=== PATIENT | female | born 1955 | race Caucasian/White ===

== ENCOUNTER 2018-03-07 18:37 | Emergency (ER) | payer OTHER ==
[~2018-03-07] VITALS: Ht 154.9 cm; Wt 74.9 kg
[2018-03-07 19:43] LABS: BASOPHILS % (AUTO) 0 % (0-1); EOSINOPHILS # (AUTO) 0.07 x10^3/uL (0-0.4); EOSINOPHILS % (AUTO) 1 % (1-7); LYMPHOCYTES # (AUTO) 1.35 x10^3/uL (1-3.4); LYMPHOCYTES % (AUTO) 28 % (22-44); MD NO; MEAN CORPUSCULAR HEMOGLOBIN 29.9 pg (27.0-34.8); MEAN CORPUSCULAR VOLUME 87.9 fL (80-100); MEAN PLATELET VOLUME 9.5 fL (7.4-10.4); MONOCYTES # (AUTO) 0.33 x10^3/uL (0.2-0.8); MONOCYTES % (AUTO) 7 % (2-9); NEUTROPHILS # (AUTO) 3.16 x10^3/uL (1.8-6.8); NEUTROPHILS % (AUTO) 64 % (42-75); PLATELET COUNT 233 x10^3/uL (130-400); RED BLOOD COUNT 4.56 x10^6/uL (3.82-5.3); RED CELL DISTRIBUTION WIDTH 13.5 % (9.6-15.2)
[2018-03-07 19:51] LABS: ALBUMIN 3.5 g/dL (3.4-5.0); ANION GAP 10 mmol/L (5-15); CALCIUM 9.2 mg/dL (8.5-10.1); CHLORIDE 109 mmol/L (98-107); CREATININE 0.58 mg/dL (0.55-1.02)
[2018-03-07 20:45] VITALS: BP 152/90
== END 2018-03-07 20:47 | disposition home or self-care (01) ==
LOC: ED 20:41
DX: I82.4Z2 Acute embolism and thrombosis of unspecified deep veins of left distal lower extremity (principal); Z98.890 Other specified postprocedural states
CPT/HCPCS: 36415; 80048; 82040; 85025; 99283

== ENCOUNTER → 2018-03-07 | Outpatient (CLI) | payer OTHER | END | disposition home or self-care (01) | LOC: RAD 15:44 | PROVIDERS: ATTEND Podiatrist | DX: I82.492 Acute embolism and thrombosis of other specified deep vein of left lower extremity (principal); R60.0 Localized edema ==